=== PATIENT | male | born 1955 | race Caucasian/White ===

== ENCOUNTER 2018-06-22 08:41 | Emergency (ER) | payer OTHER ==
[2018-06-22] MEDS: SOD CHLORIDE 0.9% 1,000 ML IV (09:09)
[2018-06-22 09:15] LABS: ADD MAN DIFF? NO
[2018-06-22 09:18] LABS: ABNORMAL IP MESSAGE 1; BASOPHILS % 0.3 % (0.0-2.0); EOSINOPHILS % 0.3 % (0.0-7.0); HEMOGLOBIN 13.7 g/dl (14.0-18.0); LYMPHOCYTES # 0.5 10^3/ul (0.8-2.9); LYMPHOCYTES % 5.1 % (15.0-51.0); MEAN CORPUSCULAR HEMOGLOBIN 30.5 pg (29.0-33.0); MEAN CORPUSCULAR HGB CONC 31.9 g/dl (32.0-37.0); MEAN CORPUSCULAR VOLUME 95.8 fl (82.0-101.0); MEAN PLATELET VOLUME 8.9 fl (7.4-10.4); MONOCYTE # 0.6 10^3/ul (0.3-0.9); MONOCYTES % 6.4 % (0.0-11.0); NEUTROPHIL # 7.9 10^3/ul (1.6-7.5); NEUTROPHILS % 87.7 % (39.0-77.0); PLATELET COUNT 188 10^3/UL (140-415); POSITIVE DIFF @See below; RED BLOOD COUNT 4.49 10^6/ul (4.70-6.10); RED CELL DISTRIBUTION WIDTH 13.7 % (11.5-14.5)
[2018-06-22 09:40] LABS: ANION GAP 17 (5-13); BLOOD UREA NITROGEN 22 mg/dl (7-20); CALCIUM 8.9 mg/dl (8.4-10.2); CARBON DIOXIDE 21 mmol/L (21-31); CHLORIDE 102 mmol/L (97-110); CREATININE 0.78 mg/dl (0.61-1.24); Estimated GFR > 60 mL/min (>60); GLUCOSE 178 mg/dl (70-220); POTASSIUM 4.1 mmol/L (3.5-5.1); SODIUM 140 mmol/L (135-144)
[2018-06-22 09:49] LABS: PHENYTOIN (DILANTIN) < 3.0 ug/ml (10.0-20.0)
[2018-06-22] MEDS: FOSPHENYTOIN (PE) 1,000 MG in SOD CHLORIDE 0.9% 80 ML IVPB (10:34)
[2018-06-22] MEDS: LORAZEPAM 2 MG INJ IV (10:50)
== END 2018-06-22 13:25 | disposition home or self-care (01) ==
LOC: E/R 08:41
DX: R56.9 Unspecified convulsions (principal); R40.2142 Coma scale, eyes open, spontaneous, at arrival to emergency department; R40.2362 Coma scale, best motor response, obeys commands, at arrival to emergency department; R40.2252 Coma scale, best verbal response, oriented, at arrival to emergency department; F10.10 Alcohol abuse, uncomplicated; E11.9 Type 2 diabetes mellitus without complications
CPT/HCPCS: 36415; 80048; 80185; 82962; 85025; 96374; 96375; 99284-25

== ENCOUNTER 2018-09-07 15:21 | Emergency (ER) | payer OTHER ==
[2018-09-07 16:03] LABS: ADD MAN DIFF? NO
[2018-09-07 16:07] LABS: BASOPHILS % 0.3 % (0.0-2.0); EOSINOPHILS % 0.4 % (0.0-7.0); HEMATOCRIT 41.5 % (42.0-52.0); HEMOGLOBIN 13.4 g/dl (14.0-18.0); LYMPHOCYTES # 0.6 10^3/ul (0.8-2.9); LYMPHOCYTES % 8.2 % (15.0-51.0); MEAN CORPUSCULAR HEMOGLOBIN 30.9 pg (29.0-33.0); MEAN CORPUSCULAR HGB CONC 32.3 g/dl (32.0-37.0); MEAN CORPUSCULAR VOLUME 95.8 fl (82.0-101.0); MEAN PLATELET VOLUME 8.5 fl (7.4-10.4); MONOCYTE # 1.1 10^3/ul (0.3-0.9); MONOCYTES % 14.5 % (0.0-11.0); NEUTROPHIL # 5.7 10^3/ul (1.6-7.5); NEUTROPHILS % 75.9 % (39.0-77.0); PLATELET COUNT 147 10^3/UL (140-415); RED BLOOD COUNT 4.33 10^6/ul (4.70-6.10); RED CELL DISTRIBUTION WIDTH 13.4 % (11.5-14.5)
[2018-09-07 16:07] LABS: WHITE BLOOD COUNT 7.5 10^3/ul (4.8-10.8)
[2018-09-07] MEDS: LORAZEPAM 1 MG TAB PO (16:15)
[2018-09-07 16:22] LABS: INR 0.83; PARTIAL THROMBOPLASTIN TIME 24.5 Sec (23.0-35.0); PROTIME 11.5 Sec (11.9-14.9); PT RATIO 0.9
[2018-09-07 16:28] LABS: ANION GAP 6 (5-13); BLOOD UREA NITROGEN 20 mg/dl (7-20); CALCIUM 9.2 mg/dl (8.4-10.2); CARBON DIOXIDE 35 mmol/L (21-31); CHLORIDE 97 mmol/L (97-110); CREATININE 0.51 mg/dl (0.61-1.24); Estimated GFR > 60 mL/min (>60); GLUCOSE 153 mg/dl (70-220); POTASSIUM 3.9 mmol/L (3.5-5.1); SODIUM 138 mmol/L (135-144)
[2018-09-07 16:38] LABS: B-TYPE NATRIURETIC PEPTIDE 268 PG/ML (0-125); TROPONIN-I < 0.012 ng/ml (0.000-0.120)
[2018-09-07 16:49] LABS: PHENYTOIN (DILANTIN) < 3.0 ug/ml (10.0-20.0)
[2018-09-07 16:49] LABS: ETHANOL < 10.0 mg/dl (0-0)
[2018-09-07] MEDS: FOSPHENYTOIN (PE) 1,000 MG in SOD CHLORIDE 0.9% 80 ML IVPB (20:14)
== END 2018-09-07 21:42 | disposition home or self-care (01) ==
LOC: E/R 21:42
DX: F10.10 Alcohol abuse, uncomplicated (principal); I10 Essential (primary) hypertension; E11.9 Type 2 diabetes mellitus without complications; D64.9 Anemia, unspecified; Z79.82 Long term (current) use of aspirin
CPT/HCPCS: 36415; 71045; 80048; 80185; 80307; 83880; 84484; 85025; 85610; 85730; 93005; 96374; 99285-25

== ENCOUNTER 2018-10-22 17:24 | Emergency (ER) | payer OTHER ==
[2018-10-22] MEDS: DIPHTH/TET/ACEL PERTUSS (ADULT) 0.5 ML VIAL IM* (17:51)
[2018-10-22] MEDS: SOD CHLORIDE 0.9% 1,000 ML IV (17:51)
[2018-10-22] MEDS: LORAZEPAM 2 MG INJ IV (17:52)
[2018-10-22 18:00] LABS: ADD MAN DIFF? NO
[2018-10-22 18:03] LABS: BASOPHILS % 0.3 % (0.0-2.0); EOSINOPHILS # 0.1 10^3/ul (0.0-0.5); EOSINOPHILS % 1.7 % (0.0-7.0); HEMATOCRIT 40.6 % (42.0-52.0); HEMOGLOBIN 13.1 g/dl (14.0-18.0); LYMPHOCYTES % 14.6 % (15.0-51.0); MEAN CORPUSCULAR HEMOGLOBIN 31.3 pg (29.0-33.0); MEAN CORPUSCULAR HGB CONC 32.3 g/dl (32.0-37.0); MEAN CORPUSCULAR VOLUME 97.1 fl (82.0-101.0); MEAN PLATELET VOLUME 9.1 fl (7.4-10.4); MONOCYTE # 0.6 10^3/ul (0.3-0.9); MONOCYTES % 8.3 % (0.0-11.0); NEUTROPHIL # 5.2 10^3/ul (1.6-7.5); NEUTROPHILS % 74.7 % (39.0-77.0); PLATELET COUNT 117 10^3/UL (140-415); RED BLOOD COUNT 4.18 10^6/ul (4.70-6.10); RED CELL DISTRIBUTION WIDTH 15.5 % (11.5-14.5)
[2018-10-22 18:23] LABS: INR 0.77; PROTIME 10.9 Sec (11.9-14.9); PT RATIO 0.9
[2018-10-22 18:30] LABS: ALANINE AMINOTRANSFERASE 70 IU/L (13-69); ALBUMIN 4.1 g/dl (3.3-4.9); ALBUMIN/GLOBULIN RATIO 1.46; ALKALINE PHOSPHATASE 138 IU/L (42-121); ANION GAP 9 (5-13); ASPARTATE AMINO TRANSFERASE 57 IU/L (15-46); BILIRUBIN,INDIRECT 0.4 mg/dl (0-1.1); BILIRUBIN,TOTAL 0.4 mg/dl (0.2-1.3); BLOOD UREA NITROGEN 24 mg/dl (7-20); CALCIUM 9.2 mg/dl (8.4-10.2); CARBON DIOXIDE 38 mmol/L (21-31); CHLORIDE 97 mmol/L (97-110); CREATINE KINASE 62 IU/L (23-200); CREATININE 0.69 mg/dl (0.61-1.24); Estimated GFR > 60 mL/min (>60); GLUCOSE 110 mg/dl (70-220); POTASSIUM 4.5 mmol/L (3.5-5.1); SODIUM 144 mmol/L (135-144); TOTAL PROTEIN 6.9 g/dl (6.1-8.1)
[2018-10-22 18:38] LABS: CK INDEX 3.1; CK-MB 1.92 ng/ml (0.0-2.4)
[2018-10-22 18:42] LABS: TROPONIN-I 0.012 ng/ml (0.000-0.120)
[2018-10-22] MEDS: LIDOCAINE 4% CR TOP (20:10)
== END 2018-10-23 04:00 | disposition home or self-care (01) ==
LOC: E/R 10-23 04:00
DX: F10.920 Alcohol use, unspecified with intoxication, uncomplicated (principal); S01.81XA Laceration without foreign body of other part of head, initial encounter; I10 Essential (primary) hypertension; J44.9 Chronic obstructive pulmonary disease, unspecified; W18.30XA Fall on same level, unspecified, initial encounter; Y92.89 Other specified places as the place of occurrence of the external cause; Z23 Encounter for immunization; Z87.891 Personal history of nicotine dependence
CPT/HCPCS: 12013; 70450; 70486; 80053; 80307; 82550; 82553; 84484; 85025; 85610; 85730; 90471; 90715; 96374; 99285-25

== ENCOUNTER 2018-10-23 08:19 | Inpatient (IN) | payer OTHER ==
[2018-10-23] MEDS: ALBUTEROL 0.5% (NEB) 2.5 MG/0.5 ML AMP INH (09:06)
[2018-10-23] MEDS: IPRATROPIUM (NEB) 0.5 MG/2.5 ML AMP INH (09:06)
[2018-10-23] MEDS: METHYLPREDNISOLONE 125 MG INJ IV (09:10)
[2018-10-23] MEDS: LORAZEPAM 2 MG INJ IV ×5 (09:10→22:12)
[2018-10-23 09:24] LABS: ADD MAN DIFF? NO
[2018-10-23 09:31] LABS: ABNORMAL IP MESSAGE 1; BASOPHILS % 0.1 % (0.0-2.0); EOSINOPHILS % 0.1 % (0.0-7.0); HEMATOCRIT 36.8 % (42.0-52.0); LYMPHOCYTES # 0.4 10^3/ul (0.8-2.9); LYMPHOCYTES % 4.7 % (15.0-51.0); MEAN CORPUSCULAR HEMOGLOBIN 31.7 pg (29.0-33.0); MEAN CORPUSCULAR HGB CONC 32.6 g/dl (32.0-37.0); MEAN CORPUSCULAR VOLUME 97.1 fl (82.0-101.0); MEAN PLATELET VOLUME 9.8 fl (7.4-10.4); MONOCYTE # 0.9 10^3/ul (0.3-0.9); MONOCYTES % 11.1 % (0.0-11.0); NEUTROPHIL # 6.6 10^3/ul (1.6-7.5); NEUTROPHILS % 83.5 % (39.0-77.0); PLATELET COUNT 94 10^3/UL (140-415); POSITIVE DIFF @See below; RED BLOOD COUNT 3.79 10^6/ul (4.70-6.10); RED CELL DISTRIBUTION WIDTH 15.6 % (11.5-14.5)
[2018-10-23 09:31] LABS: WHITE BLOOD COUNT 7.9 10^3/ul (4.8-10.8)
[2018-10-23 09:45] LABS: INR 0.82; PARTIAL THROMBOPLASTIN TIME 22.4 Sec (23.0-35.0); PROTIME 11.4 Sec (11.9-14.9); PT RATIO 0.9
[2018-10-23 09:50] LABS: ANION GAP 14 (5-13); BLOOD UREA NITROGEN 23 mg/dl (7-20); CARBON DIOXIDE 32 mmol/L (21-31); CHLORIDE 95 mmol/L (97-110); CREATININE 0.47 mg/dl (0.61-1.24); Estimated GFR > 60 mL/min (>60); GLUCOSE 119 mg/dl (70-220); POTASSIUM 4.1 mmol/L (3.5-5.1); SODIUM 141 mmol/L (135-144)
[2018-10-23] MEDS: MULTIVITAMINS 10 ML, THIAMINE 100 MG, FOLIC ACID 1 MG, MAGNESIUM SULFATE 2 GM in SOD CH... IV (09:53)
[2018-10-23] MEDS: LEVETIRACETAM 750 MG TAB PO ×2 (09:53→20:18)
[2018-10-23 10:00] LABS: TROPONIN-I 0.017 ng/ml (0.000-0.120)
[2018-10-23] MEDS ORDERED: ONDANSETRON 4 MG INJ IV ×2 (13:00→13:30)
[2018-10-23] MEDS ORDERED: NACL 0.9% 3 ML SYG IV (13:00)
[2018-10-23] MEDS: LEVALBUTEROL (NEB) 0.63 MG/3 ML AMP HHN ×2 (13:10→20:33)
[2018-10-23] MEDS ORDERED: ACETAMINOPHEN 325 MG TAB PO (13:30)
[2018-10-23 14:17] LABS: FREE T4 (FREE THYROXINE) 0.95 ng/dl (0.78-2.44)
[2018-10-23 14:22] LABS: HEMOGLOBIN A1C 5.5 % (0-5.9)
[2018-10-23] MEDS: CHLORDIAZEPOXIDE 25 MG CAP PO ×2 (15:54→20:26)
[2018-10-23] MEDS: METOPROLOL 50 MG TAB PO ×2 (15:55→20:19)
[2018-10-23] MEDS: ARFORMOTEROL TARTRATE 15MCG/2 ML AMP NEB (20:00)
[2018-10-23] MEDS: ATORVASTATIN 40 MG TAB PO (20:18)
[2018-10-24] MEDS: LORAZEPAM 2 MG INJ IV ×5 (00:41→21:11)
[2018-10-24] MEDS: LEVALBUTEROL (NEB) 0.63 MG/3 ML AMP HHN ×3 (02:56→12:52)
[2018-10-24 06:24] LABS: ADD MAN DIFF? NO
[2018-10-24 06:41] LABS: ABNORMAL IP MESSAGE 1; BASOPHILS % 0.1 % (0.0-2.0); EOSINOPHILS % 0.1 % (0.0-7.0); HEMATOCRIT 35.3 % (42.0-52.0); HEMOGLOBIN 11.4 g/dl (14.0-18.0); LYMPHOCYTES # 0.4 10^3/ul (0.8-2.9); LYMPHOCYTES % 5.4 % (15.0-51.0); MEAN CORPUSCULAR HEMOGLOBIN 31.4 pg (29.0-33.0); MEAN CORPUSCULAR HGB CONC 32.3 g/dl (32.0-37.0); MEAN CORPUSCULAR VOLUME 97.2 fl (82.0-101.0); MEAN PLATELET VOLUME 10.2 fl (7.4-10.4); MONOCYTE # 0.9 10^3/ul (0.3-0.9); MONOCYTES % 12.6 % (0.0-11.0); NEUTROPHIL # 5.5 10^3/ul (1.6-7.5); NEUTROPHILS % 81.2 % (39.0-77.0); PLATELET COUNT 78 10^3/UL (140-415); POSITIVE DIFF @See below; RED BLOOD COUNT 3.63 10^6/ul (4.70-6.10); RED CELL DISTRIBUTION WIDTH 15.7 % (11.5-14.5)
[2018-10-24 06:41] LABS: WHITE BLOOD COUNT 6.8 10^3/ul (4.8-10.8)
[2018-10-24 06:45] LABS: HEMOGLOBIN A1C 5.4 % (0-5.9)
[2018-10-24 06:48] LABS: PHOSPHORUS 2.3 mg/dl (2.5-4.9)
[2018-10-24 06:48] LABS: CHOLESTEROL 180 mg/dl (100-200); MAGNESIUM 2.2 mg/dl (1.7-2.5); TRIGLYCERIDES 45 mg/dl (0-149)
[2018-10-24 06:50] LABS: ALANINE AMINOTRANSFERASE 44 IU/L (13-69); ALBUMIN 3.7 g/dl (3.3-4.9); ALBUMIN/GLOBULIN RATIO 1.37; ALKALINE PHOSPHATASE 83 IU/L (42-121); ANION GAP 6 (5-13); ASPARTATE AMINO TRANSFERASE 41 IU/L (15-46); BILIRUBIN,INDIRECT 0.7 mg/dl (0-1.1); BILIRUBIN,TOTAL 0.7 mg/dl (0.2-1.3); BLOOD UREA NITROGEN 13 mg/dl (7-20); CALCIUM 8.7 mg/dl (8.4-10.2); CARBON DIOXIDE 35 mmol/L (21-31); CHLORIDE 100 mmol/L (97-110); CREATININE 0.48 mg/dl (0.61-1.24); Estimated GFR > 60 mL/min (>60); GLUCOSE 99 mg/dl (70-220); POTASSIUM 3.7 mmol/L (3.5-5.1); SODIUM 141 mmol/L (135-144); TOTAL PROTEIN 6.4 g/dl (6.1-8.1)
[2018-10-24 07:00] LABS: CHOL/HDL RATIO 1.2 RATIO; HDL CHOLESTEROL 142 mg/dl (30-78); LDL CHOLESTEROL,CALCULATED 29 mg/dl
[2018-10-24] MEDS: ARFORMOTEROL TARTRATE 15MCG/2 ML AMP NEB (08:03)
[2018-10-24] MEDS: CHLORDIAZEPOXIDE 25 MG CAP PO ×3 (09:06→20:09)
[2018-10-24] MEDS: NICOTINE (14 MG/24 HR) PATCH TRANSDERM (09:06)
[2018-10-24] MEDS: MULTIVITAMINS THERAPEUTIC TAB PO (09:07)
[2018-10-24] MEDS: LEVETIRACETAM 750 MG TAB PO ×2 (09:07→20:09)
[2018-10-24] MEDS: METOPROLOL 50 MG TAB PO ×2 (09:07→20:09)
[2018-10-24] MEDS ORDERED: LORAZEPAM 2 MG INJ IV (13:00)
[2018-10-24] MEDS: BUDESONIDE (NEB) 0.5MG/2ML AMP HHN ×2 (13:30→20:14)
[2018-10-24] MEDS: ALBUTEROL/IPRATROPIUM (NEB) 3 ML AMP HHN ×3 (13:37→20:13)
[2018-10-24] MEDS: ATORVASTATIN 40 MG TAB PO (20:09)
[2018-10-25] MEDS: LORAZEPAM 2 MG INJ IV ×3 (03:59→20:09)
[2018-10-25] MEDS: ALBUTEROL/IPRATROPIUM (NEB) 3 ML AMP HHN ×4 (04:11→20:29)
[2018-10-25 06:42] LABS: ADD MAN DIFF? NO
[2018-10-25 06:58] LABS: ABNORMAL IP MESSAGE 1; BASOPHILS % 0.2 % (0.0-2.0); EOSINOPHILS # 0.1 10^3/ul (0.0-0.5); HEMATOCRIT 38.3 % (42.0-52.0); HEMOGLOBIN 12.5 g/dl (14.0-18.0); LYMPHOCYTES # 0.9 10^3/ul (0.8-2.9); MEAN CORPUSCULAR HEMOGLOBIN 31.8 pg (29.0-33.0); MEAN CORPUSCULAR HGB CONC 32.6 g/dl (32.0-37.0); MEAN CORPUSCULAR VOLUME 97.5 fl (82.0-101.0); MONOCYTE # 0.5 10^3/ul (0.3-0.9); MONOCYTES % 8.5 % (0.0-11.0); NEUTROPHIL # 4.3 10^3/ul (1.6-7.5); NEUTROPHILS % 73.6 % (39.0-77.0); PLATELET COUNT 78 10^3/UL (140-415); POSITIVE DIFF @See below; RED BLOOD COUNT 3.93 10^6/ul (4.70-6.10); RED CELL DISTRIBUTION WIDTH 15.9 % (11.5-14.5)
[2018-10-25 06:58] LABS: WHITE BLOOD COUNT 5.9 10^3/ul (4.8-10.8)
[2018-10-25 07:20] LABS: ANION GAP 5 (5-13); BLOOD UREA NITROGEN 14 mg/dl (7-20); CALCIUM 8.8 mg/dl (8.4-10.2); CARBON DIOXIDE 35 mmol/L (21-31); CHLORIDE 101 mmol/L (97-110); CREATININE 0.52 mg/dl (0.61-1.24); Estimated GFR > 60 mL/min (>60); GLUCOSE 98 mg/dl (70-220); PHOSPHORUS 1.4 mg/dl (2.5-4.9); POTASSIUM 3.2 mmol/L (3.5-5.1); SODIUM 141 mmol/L (135-144)
[2018-10-25] MEDS: BUDESONIDE (NEB) 0.5MG/2ML AMP HHN ×2 (08:32→20:29)
[2018-10-25] MEDS: CHLORDIAZEPOXIDE 25 MG CAP PO (09:10)
[2018-10-25] MEDS: MULTIVITAMINS THERAPEUTIC TAB PO (09:11)
[2018-10-25] MEDS: LEVETIRACETAM 750 MG TAB PO ×2 (09:11→20:08)
[2018-10-25] MEDS: METOPROLOL 50 MG TAB PO ×2 (09:12→20:08)
[2018-10-25] MEDS: NICOTINE (14 MG/24 HR) PATCH TRANSDERM (09:12)
[2018-10-25] MEDS: CHLORDIAZEPOXIDE 5 MG CAP PO ×2 (12:37→20:08)
[2018-10-25] MEDS: POTASSIUM CHLORIDE 20 MEQ POWDER FOR ORAL SOLN PO (12:37)
[2018-10-25] MEDS: NEUTRA-PHOS 250 MG PACKET PO (13:35)
[2018-10-25 14:37] LABS: AMMONIA 13 umol/l (9-30); CREATINE KINASE 31 IU/L (23-200)
[2018-10-25] MEDS: ATORVASTATIN 40 MG TAB PO (20:08)
[2018-10-26] MEDS: LORAZEPAM 2 MG INJ IV ×3 (02:18→22:16)
[2018-10-26 06:26] LABS: ADD MAN DIFF? NO
[2018-10-26 06:36] LABS: ABNORMAL IP MESSAGE 1; BASOPHILS % 0.3 % (0.0-2.0); EOSINOPHILS # 0.2 10^3/ul (0.0-0.5); EOSINOPHILS % 2.1 % (0.0-7.0); HEMATOCRIT 35.6 % (42.0-52.0); HEMOGLOBIN 11.5 g/dl (14.0-18.0); LYMPHOCYTES # 0.9 10^3/ul (0.8-2.9); LYMPHOCYTES % 11.6 % (15.0-51.0); MEAN CORPUSCULAR HEMOGLOBIN 31.7 pg (29.0-33.0); MEAN CORPUSCULAR HGB CONC 32.3 g/dl (32.0-37.0); MEAN CORPUSCULAR VOLUME 98.1 fl (82.0-101.0); MONOCYTE # 0.6 10^3/ul (0.3-0.9); MONOCYTES % 7.6 % (0.0-11.0); NEUTROPHIL # 6.2 10^3/ul (1.6-7.5); NEUTROPHILS % 77.8 % (39.0-77.0); PLATELET COUNT 74 10^3/UL (140-415); POSITIVE DIFF @See below; RED BLOOD COUNT 3.63 10^6/ul (4.70-6.10); RED CELL DISTRIBUTION WIDTH 15.9 % (11.5-14.5)
[2018-10-26 07:11] LABS: ANION GAP 4 (5-13); BLOOD UREA NITROGEN 27 mg/dl (7-20); CALCIUM 8.8 mg/dl (8.4-10.2); CARBON DIOXIDE 31 mmol/L (21-31); CHLORIDE 104 mmol/L (97-110); CREATININE 0.62 mg/dl (0.61-1.24); Estimated GFR > 60 mL/min (>60); GLUCOSE 114 mg/dl (70-220); MAGNESIUM 1.7 mg/dl (1.7-2.5); PHOSPHORUS 3.8 mg/dl (2.5-4.9); POTASSIUM 3.7 mmol/L (3.5-5.1); SODIUM 139 mmol/L (135-144)
[2018-10-26] MEDS: BUDESONIDE (NEB) 0.5MG/2ML AMP HHN ×2 (08:45→20:10)
[2018-10-26] MEDS: ALBUTEROL/IPRATROPIUM (NEB) 3 ML AMP HHN ×3 (08:45→20:10)
[2018-10-26] MEDS: CHLORDIAZEPOXIDE 5 MG CAP PO ×3 (09:39→21:24)
[2018-10-26] MEDS: MULTIVITAMINS THERAPEUTIC TAB PO (09:39)
[2018-10-26] MEDS: LEVETIRACETAM 750 MG TAB PO ×2 (09:39→21:24)
[2018-10-26] MEDS: NICOTINE (14 MG/24 HR) PATCH TRANSDERM (09:40)
[2018-10-26] MEDS: METOPROLOL 50 MG TAB PO ×2 (09:45→21:24)
[2018-10-26 12:29] LABS: ADD UMIC YES; UR ASCORBIC ACID 20 mg/dL (NEGATIVE); UR BILIRUBIN (Dip) NEGATIVE (NEGATIVE); UR BLOOD (Dip) NEGATIVE (NEGATIVE); UR CLARITY CLOUDY (CLEAR); UR COLOR YELLOW (YELLOW); UR GLUCOSE (Dip) NEGATIVE (NEGATIVE); UR KETONES (Dip) NEGATIVE (NEGATIVE); UR LEUKOCYTE ESTERASE (Dip) NEGATIVE Leu/ul (NEGATIVE); UR MUCUS FEW /HPF (NONE SEEN); UR NITRITE (Dip) NEGATIVE (NEGATIVE); UR RBC 1 /HPF (0-5); UR SPECIFIC GRAVITY (Dip) 1.021 (1.003-1.030); UR TOTAL PROTEIN (Dip) 1+ mg/dl (NEGATIVE); UR UROBILINOGEN (Dip) NEGATIVE (NEGATIVE); UR WBC 1 /HPF (0-5)
[2018-10-26 12:56] LABS: AMPHETAMINE/METHAMPHETAMINE Negative (NEGATIVE); BARBITURATES Negative (NEGATIVE); CANNABINOIDS Negative (NEGATIVE); COCAINE Negative (NEGATIVE); OPIATES Negative (NEGATIVE)
[2018-10-26 13:11] LABS: BENZODIAZEPINES Positive (NEGATIVE)
[2018-10-26] MEDS: HYDROCODONE/APAP (5/325) TAB PO (18:15)
[2018-10-26] MEDS: ATORVASTATIN 40 MG TAB PO (21:24)
[2018-10-26] MEDS: ZOLPIDEM 5 MG TAB PO (23:43)
[2018-10-27] MEDS: HYDROCODONE/APAP (5/325) TAB PO ×3 (00:56→19:51)
[2018-10-27 07:30] LABS: ADD MAN DIFF? NO
[2018-10-27 07:38] LABS: WHITE BLOOD COUNT 6.5 10^3/ul (4.8-10.8)
[2018-10-27 07:38] LABS: ABNORMAL IP MESSAGE 1; BASOPHILS % 0.2 % (0.0-2.0); EOSINOPHILS # 0.2 10^3/ul (0.0-0.5); EOSINOPHILS % 2.9 % (0.0-7.0); HEMATOCRIT 34.1 % (42.0-52.0); LYMPHOCYTES # 1.3 10^3/ul (0.8-2.9); MEAN CORPUSCULAR HEMOGLOBIN 31.6 pg (29.0-33.0); MEAN CORPUSCULAR HGB CONC 32.3 g/dl (32.0-37.0); MEAN PLATELET VOLUME 10.3 fl (7.4-10.4); MONOCYTE # 0.5 10^3/ul (0.3-0.9); MONOCYTES % 8.2 % (0.0-11.0); NEUTROPHIL # 4.4 10^3/ul (1.6-7.5); NEUTROPHILS % 68.2 % (39.0-77.0); PLATELET COUNT 77 10^3/UL (140-415); POSITIVE DIFF @See below; RED BLOOD COUNT 3.48 10^6/ul (4.70-6.10)
[2018-10-27 07:55] LABS: ANION GAP 2 (5-13); BLOOD UREA NITROGEN 20 mg/dl (7-20); CARBON DIOXIDE 34 mmol/L (21-31); CHLORIDE 102 mmol/L (97-110); CREATININE 0.51 mg/dl (0.61-1.24); Estimated GFR > 60 mL/min (>60); GLUCOSE 91 mg/dl (70-220); MAGNESIUM 1.5 mg/dl (1.7-2.5); PHOSPHORUS 4.9 mg/dl (2.5-4.9); POTASSIUM 3.6 mmol/L (3.5-5.1); SODIUM 138 mmol/L (135-144)
[2018-10-27] MEDS: ALBUTEROL/IPRATROPIUM (NEB) 3 ML AMP HHN ×3 (08:07→20:20)
[2018-10-27] MEDS: BUDESONIDE (NEB) 0.5MG/2ML AMP HHN ×2 (08:07→20:21)
[2018-10-27] MEDS: LEVETIRACETAM 750 MG TAB PO ×2 (09:06→20:13)
[2018-10-27] MEDS: MULTIVITAMINS THERAPEUTIC TAB PO (09:06)
[2018-10-27] MEDS: CHLORDIAZEPOXIDE 5 MG CAP PO ×2 (09:06→12:35)
[2018-10-27] MEDS: NICOTINE (14 MG/24 HR) PATCH TRANSDERM (09:07)
[2018-10-27] MEDS: METOPROLOL 50 MG TAB PO ×2 (09:08→20:14)
[2018-10-27] MEDS: LORAZEPAM 2 MG INJ IV (10:32)
[2018-10-27] MEDS ORDERED: SENNA/DOCUSATE NA (8.6MG/50MG) TAB PO (15:00)
[2018-10-27] MEDS: DOCUSATE SODIUM 100 MG CAP PO ×2 (15:26→20:13)
[2018-10-27] MEDS: LORAZEPAM 1 MG TAB PO (17:00)
[2018-10-27] MEDS: ATORVASTATIN 40 MG TAB PO (20:14)
[2018-10-28] MEDS: LORAZEPAM 1 MG TAB PO ×3 (00:07→14:00)
[2018-10-28] MEDS: ZOLPIDEM 5 MG TAB PO ×2 (01:59→21:56)
[2018-10-28] MEDS: HYDROCODONE/APAP (5/325) TAB PO ×4 (02:51→20:29)
[2018-10-28 06:15] LABS: ADD MAN DIFF? NO
[2018-10-28 06:18] LABS: ABNORMAL IP MESSAGE 1; BASOPHILS % 0.3 % (0.0-2.0); EOSINOPHILS # 0.2 10^3/ul (0.0-0.5); EOSINOPHILS % 2.8 % (0.0-7.0); HEMATOCRIT 38.2 % (42.0-52.0); HEMOGLOBIN 12.1 g/dl (14.0-18.0); LYMPHOCYTES # 1.1 10^3/ul (0.8-2.9); LYMPHOCYTES % 17.6 % (15.0-51.0); MEAN CORPUSCULAR HEMOGLOBIN 31.7 pg (29.0-33.0); MEAN CORPUSCULAR HGB CONC 31.7 g/dl (32.0-37.0); MEAN PLATELET VOLUME 11.1 fl (7.4-10.4); MONOCYTE # 0.6 10^3/ul (0.3-0.9); MONOCYTES % 8.8 % (0.0-11.0); NEUTROPHIL # 4.4 10^3/ul (1.6-7.5); NEUTROPHILS % 69.7 % (39.0-77.0); PLATELET COUNT 75 10^3/UL (140-415); POSITIVE DIFF @See below; RED BLOOD COUNT 3.82 10^6/ul (4.70-6.10); RED CELL DISTRIBUTION WIDTH 15.8 % (11.5-14.5)
[2018-10-28 06:18] LABS: WHITE BLOOD COUNT 6.4 10^3/ul (4.8-10.8)
[2018-10-28 06:39] LABS: ANION GAP 5 (5-13); BLOOD UREA NITROGEN 26 mg/dl (7-20); CALCIUM 8.8 mg/dl (8.4-10.2); CARBON DIOXIDE 31 mmol/L (21-31); CHLORIDE 101 mmol/L (97-110); Estimated GFR > 60 mL/min (>60); GLUCOSE 122 mg/dl (70-220); MAGNESIUM 1.6 mg/dl (1.7-2.5); PHOSPHORUS 3.9 mg/dl (2.5-4.9); POTASSIUM 4.9 mmol/L (3.5-5.1); SODIUM 137 mmol/L (135-144)
[2018-10-28] MEDS: NICOTINE (14 MG/24 HR) PATCH TRANSDERM (08:06)
[2018-10-28] MEDS: MULTIVITAMINS THERAPEUTIC TAB PO (08:06)
[2018-10-28] MEDS: LEVETIRACETAM 750 MG TAB PO ×2 (08:06→20:29)
[2018-10-28] MEDS: DOCUSATE SODIUM 100 MG CAP PO ×2 (08:07→20:29)
[2018-10-28] MEDS: METOPROLOL 50 MG TAB PO ×2 (08:07→20:28)
[2018-10-28] MEDS: ALBUTEROL/IPRATROPIUM (NEB) 3 ML AMP HHN ×3 (08:41→19:57)
[2018-10-28] MEDS: BUDESONIDE (NEB) 0.5MG/2ML AMP HHN ×2 (08:42→19:57)
[2018-10-28] MEDS: MAGNESIUM SULFATE 2 GM/50 ML 50 ML IVPB (15:05)
[2018-10-28] MEDS: ATORVASTATIN 40 MG TAB PO (20:29)
[2018-10-29] MEDS: HYDROCODONE/APAP (5/325) TAB PO ×3 (02:38→21:13)
[2018-10-29] MEDS: LORAZEPAM 1 MG TAB PO ×2 (03:16→09:53)
[2018-10-29 06:36] LABS: ANION GAP 4 (5-13); BLOOD UREA NITROGEN 24 mg/dl (7-20); CALCIUM 8.9 mg/dl (8.4-10.2); CARBON DIOXIDE 35 mmol/L (21-31); CHLORIDE 99 mmol/L (97-110); CREATININE 0.53 mg/dl (0.61-1.24); Estimated GFR > 60 mL/min (>60); GLUCOSE 87 mg/dl (70-220); MAGNESIUM 1.9 mg/dl (1.7-2.5); POTASSIUM 3.9 mmol/L (3.5-5.1); SODIUM 138 mmol/L (135-144)
[2018-10-29] MEDS: ALBUTEROL/IPRATROPIUM (NEB) 3 ML AMP HHN ×3 (07:55→19:16)
[2018-10-29] MEDS: BUDESONIDE (NEB) 0.5MG/2ML AMP HHN ×2 (08:01→19:16)
[2018-10-29] MEDS: NICOTINE (14 MG/24 HR) PATCH TRANSDERM (08:05)
[2018-10-29] MEDS: LEVETIRACETAM 750 MG TAB PO ×2 (08:06→21:12)
[2018-10-29] MEDS: DOCUSATE SODIUM 100 MG CAP PO ×2 (08:06→21:00)
[2018-10-29] MEDS: MULTIVITAMINS THERAPEUTIC TAB PO (08:07)
[2018-10-29] MEDS: METOPROLOL 50 MG TAB PO ×2 (08:07→21:00)
[2018-10-29] MEDS: VENLAFAXINE 37.5 MG TAB PO (08:07)
[2018-10-29 15:23] LABS: AADO2 Arterial 36.4 mmHg (7.0-24.0); Allen Test ACCEPTAB; Arterial Base Excess 8.2 mmol/L (-3.0-3); Arterial Blood Gas Oxygen Sat 97.4 mmHG (95.0-98.0); Arterial COHb 0 % (0.0-3.0); Arterial Fraction of Oxyhgb 97.1 % (93.0-99.0); Arterial HCO3 35.5 mmol/L (22.0-26.0); Arterial MetHb 0.3 % (0.0-1.5); Arterial pCO2 63.8 mmhg (35-45); MODE NASAL CANNULA; Site Right Radial
[2018-10-29] MEDS: LORAZEPAM 0.5 MG TAB PO (18:45)
[2018-10-29] MEDS: ATORVASTATIN 40 MG TAB PO (21:12)
[2018-10-29] MEDS: ZOLPIDEM 5 MG TAB PO (22:19)
[2018-10-30] MEDS: LORAZEPAM 0.5 MG TAB PO ×3 (01:28→19:23)
[2018-10-30] MEDS: HYDROCODONE/APAP (5/325) TAB PO ×3 (03:06→20:20)
[2018-10-30 06:07] LABS: ADD MAN DIFF? NO
[2018-10-30 06:09] LABS: WHITE BLOOD COUNT 5.7 10^3/ul (4.8-10.8)
[2018-10-30 06:09] LABS: BASOPHILS % 0.4 % (0.0-2.0); EOSINOPHILS # 0.2 10^3/ul (0.0-0.5); EOSINOPHILS % 3.2 % (0.0-7.0); HEMOGLOBIN 10.1 g/dl (14.0-18.0); LYMPHOCYTES % 16.7 % (15.0-51.0); MEAN CORPUSCULAR HEMOGLOBIN 31.7 pg (29.0-33.0); MEAN CORPUSCULAR HGB CONC 31.6 g/dl (32.0-37.0); MEAN CORPUSCULAR VOLUME 100.3 fl (82.0-101.0); MEAN PLATELET VOLUME 9.4 fl (7.4-10.4); MONOCYTE # 0.9 10^3/ul (0.3-0.9); MONOCYTES % 15.5 % (0.0-11.0); NEUTROPHIL # 3.6 10^3/ul (1.6-7.5); NEUTROPHILS % 63.5 % (39.0-77.0); PLATELET COUNT 131 10^3/UL (140-415); RED BLOOD COUNT 3.19 10^6/ul (4.70-6.10); RED CELL DISTRIBUTION WIDTH 15.4 % (11.5-14.5)
[2018-10-30 06:28] LABS: ANION GAP 2 (5-13); BLOOD UREA NITROGEN 23 mg/dl (7-20); CALCIUM 8.6 mg/dl (8.4-10.2); CARBON DIOXIDE 36 mmol/L (21-31); CHLORIDE 100 mmol/L (97-110); CREATININE 0.52 mg/dl (0.61-1.24); Estimated GFR > 60 mL/min (>60); GLUCOSE 126 mg/dl (70-220); MAGNESIUM 1.9 mg/dl (1.7-2.5); PHOSPHORUS 3.6 mg/dl (2.5-4.9); POTASSIUM 3.9 mmol/L (3.5-5.1); SODIUM 138 mmol/L (135-144)
[2018-10-30] MEDS: ALBUTEROL/IPRATROPIUM (NEB) 3 ML AMP HHN ×3 (08:18→20:29)
[2018-10-30] MEDS: BUDESONIDE (NEB) 0.5MG/2ML AMP HHN ×2 (08:28→20:36)
[2018-10-30] MEDS: DOCUSATE SODIUM 100 MG CAP PO ×2 (09:19→20:17)
[2018-10-30] MEDS: METOPROLOL 50 MG TAB PO ×2 (09:20→20:18)
[2018-10-30] MEDS: MULTIVITAMINS THERAPEUTIC TAB PO (09:20)
[2018-10-30] MEDS: NICOTINE (14 MG/24 HR) PATCH TRANSDERM (09:23)
[2018-10-30] MEDS: VENLAFAXINE 37.5 MG TAB PO (13:07)
[2018-10-30] MEDS: LEVETIRACETAM 750 MG TAB PO ×2 (13:07→20:17)
[2018-10-30 13:21] LABS: HEMATOCRIT 35.8 % (42.0-52.0); HEMOGLOBIN 11.4 g/dl (14.0-18.0)
[2018-10-30] MEDS: ATORVASTATIN 40 MG TAB PO (20:17)
[2018-10-31] MEDS: ZOLPIDEM 5 MG TAB PO ×2 (01:15→22:38)
[2018-10-31] MEDS: HYDROCODONE/APAP (5/325) TAB PO (03:32)
[2018-10-31 07:04] LABS: ADD MAN DIFF? NO
[2018-10-31 07:07] LABS: WHITE BLOOD COUNT 4.8 10^3/ul (4.8-10.8)
[2018-10-31 07:07] LABS: BASOPHILS % 0.4 % (0.0-2.0); EOSINOPHILS # 0.2 10^3/ul (0.0-0.5); EOSINOPHILS % 3.1 % (0.0-7.0); HEMATOCRIT 35.4 % (42.0-52.0); HEMOGLOBIN 11.2 g/dl (14.0-18.0); LYMPHOCYTES # 0.9 10^3/ul (0.8-2.9); LYMPHOCYTES % 19.5 % (15.0-51.0); MEAN CORPUSCULAR HEMOGLOBIN 31.6 pg (29.0-33.0); MEAN CORPUSCULAR HGB CONC 31.6 g/dl (32.0-37.0); MEAN PLATELET VOLUME 9.3 fl (7.4-10.4); MONOCYTE # 0.9 10^3/ul (0.3-0.9); MONOCYTES % 18.9 % (0.0-11.0); NEUTROPHIL # 2.7 10^3/ul (1.6-7.5); NEUTROPHILS % 57.3 % (39.0-77.0); PLATELET COUNT 174 10^3/UL (140-415); RED BLOOD COUNT 3.54 10^6/ul (4.70-6.10); RED CELL DISTRIBUTION WIDTH 15.2 % (11.5-14.5)
[2018-10-31 07:33] LABS: ANION GAP 3 (5-13); BLOOD UREA NITROGEN 19 mg/dl (7-20); CALCIUM 8.6 mg/dl (8.4-10.2); CARBON DIOXIDE 37 mmol/L (21-31); CHLORIDE 99 mmol/L (97-110); CREATININE 0.56 mg/dl (0.61-1.24); Estimated GFR > 60 mL/min (>60); GLUCOSE 77 mg/dl (70-220); PHOSPHORUS 3.7 mg/dl (2.5-4.9); POTASSIUM 4.3 mmol/L (3.5-5.1); SODIUM 139 mmol/L (135-144)
[2018-10-31] MEDS: ALBUTEROL/IPRATROPIUM (NEB) 3 ML AMP HHN ×3 (08:40→20:21)
[2018-10-31] MEDS: BUDESONIDE (NEB) 0.5MG/2ML AMP HHN ×2 (08:50→20:21)
[2018-10-31] MEDS: VENLAFAXINE 37.5 MG TAB PO (08:57)
[2018-10-31] MEDS: LEVETIRACETAM 750 MG TAB PO ×2 (08:57→20:45)
[2018-10-31] MEDS: NICOTINE (14 MG/24 HR) PATCH TRANSDERM (08:57)
[2018-10-31] MEDS: MULTIVITAMINS THERAPEUTIC TAB PO (08:58)
[2018-10-31] MEDS: DOCUSATE SODIUM 100 MG CAP PO ×2 (08:58→20:46)
[2018-10-31] MEDS: METOPROLOL 50 MG TAB PO ×2 (08:58→20:47)
[2018-10-31] MEDS: LORAZEPAM 0.5 MG TAB PO ×2 (09:56→20:46)
[2018-10-31] MEDS: ATORVASTATIN 40 MG TAB PO (20:46)
[2018-11-01] MEDS: HYDROCODONE/APAP (5/325) TAB PO ×2 (03:13→12:40)
[2018-11-01] MEDS: LEVETIRACETAM 750 MG TAB PO ×2 (08:29→20:16)
[2018-11-01] MEDS: VENLAFAXINE 37.5 MG TAB PO (08:29)
[2018-11-01] MEDS: MULTIVITAMINS THERAPEUTIC TAB PO (08:29)
[2018-11-01] MEDS: DOCUSATE SODIUM 100 MG CAP PO ×2 (08:30→20:16)
[2018-11-01] MEDS: METOPROLOL 50 MG TAB PO ×2 (08:30→20:18)
[2018-11-01] MEDS: NICOTINE (14 MG/24 HR) PATCH TRANSDERM (08:31)
[2018-11-01] MEDS: LORAZEPAM 0.5 MG TAB PO ×2 (08:34→20:16)
[2018-11-01] MEDS: ALBUTEROL/IPRATROPIUM (NEB) 3 ML AMP HHN ×3 (08:55→20:45)
[2018-11-01] MEDS: BUDESONIDE (NEB) 0.5MG/2ML AMP HHN ×2 (08:58→20:45)
[2018-11-01] MEDS: ATORVASTATIN 40 MG TAB PO (20:16)
[2018-11-01] MEDS: ZOLPIDEM 5 MG TAB PO (21:19)
[2018-11-02] MEDS: LORAZEPAM 0.5 MG TAB PO ×3 (02:11→20:10)
[2018-11-02] MEDS: HYDROCODONE/APAP (5/325) TAB PO (04:17)
[2018-11-02] MEDS: BUDESONIDE (NEB) 0.5MG/2ML AMP HHN ×2 (07:46→19:48)
[2018-11-02] MEDS: ALBUTEROL/IPRATROPIUM (NEB) 3 ML AMP HHN ×3 (07:46→19:48)
[2018-11-02] MEDS: METOPROLOL 50 MG TAB PO ×2 (08:22→20:11)
[2018-11-02] MEDS: DOCUSATE SODIUM 100 MG CAP PO ×2 (08:22→20:10)
[2018-11-02] MEDS: LEVETIRACETAM 750 MG TAB PO ×2 (08:22→21:23)
[2018-11-02] MEDS: MULTIVITAMINS THERAPEUTIC TAB PO (08:22)
[2018-11-02] MEDS: NICOTINE (14 MG/24 HR) PATCH TRANSDERM (08:23)
[2018-11-02] MEDS: VENLAFAXINE 37.5 MG TAB PO (08:27)
[2018-11-02] MEDS: ATORVASTATIN 40 MG TAB PO (20:10)
[2018-11-02] MEDS: ZOLPIDEM 5 MG TAB PO (21:23)
[2018-11-03] MEDS: HYDROCODONE/APAP (5/325) TAB PO ×2 (00:46→21:31)
[2018-11-03] MEDS: ALBUTEROL/IPRATROPIUM (NEB) 3 ML AMP HHN ×3 (08:22→20:58)
[2018-11-03] MEDS: BUDESONIDE (NEB) 0.5MG/2ML AMP HHN ×2 (08:23→20:59)
[2018-11-03] MEDS: DOCUSATE SODIUM 100 MG CAP PO ×2 (08:37→20:09)
[2018-11-03] MEDS: MULTIVITAMINS THERAPEUTIC TAB PO (08:37)
[2018-11-03] MEDS: LEVETIRACETAM 750 MG TAB PO ×2 (08:37→20:08)
[2018-11-03] MEDS: VENLAFAXINE 37.5 MG TAB PO (08:37)
[2018-11-03] MEDS: METOPROLOL 50 MG TAB PO ×2 (08:38→20:09)
[2018-11-03] MEDS: NICOTINE (14 MG/24 HR) PATCH TRANSDERM (08:38)
[2018-11-03] MEDS: LORAZEPAM 0.5 MG TAB PO ×2 (08:41→20:08)
[2018-11-03] MEDS: ATORVASTATIN 40 MG TAB PO (20:07)
[2018-11-04] MEDS: ZOLPIDEM 5 MG TAB PO ×2 (01:45→20:48)
[2018-11-04] MEDS: METOPROLOL 50 MG TAB PO ×3 (08:24→21:20)
[2018-11-04] MEDS: VENLAFAXINE 37.5 MG TAB PO (08:25)
[2018-11-04] MEDS: LEVETIRACETAM 750 MG TAB PO ×2 (08:25→20:44)
[2018-11-04] MEDS: DOCUSATE SODIUM 100 MG CAP PO ×2 (08:25→20:47)
[2018-11-04] MEDS: LORAZEPAM 0.5 MG TAB PO (08:25)
[2018-11-04] MEDS: MULTIVITAMINS THERAPEUTIC TAB PO (08:25)
[2018-11-04] MEDS: NICOTINE (14 MG/24 HR) PATCH TRANSDERM (08:26)
[2018-11-04] MEDS: ALBUTEROL/IPRATROPIUM (NEB) 3 ML AMP HHN ×3 (08:56→19:21)
[2018-11-04] MEDS: BUDESONIDE (NEB) 0.5MG/2ML AMP HHN ×2 (08:56→19:21)
[2018-11-04] MEDS: ATORVASTATIN 40 MG TAB PO (20:47)
[2018-11-04] MEDS: HYDROCODONE/APAP (5/325) TAB PO (21:39)
[2018-11-05] MEDS: LORAZEPAM 0.5 MG TAB PO ×3 (03:03→20:02)
[2018-11-05] MEDS: NICOTINE (14 MG/24 HR) PATCH TRANSDERM (08:08)
[2018-11-05] MEDS: HYDROCODONE/APAP (5/325) TAB PO ×2 (08:09→20:03)
[2018-11-05] MEDS: DOCUSATE SODIUM 100 MG CAP PO ×2 (08:09→20:01)
[2018-11-05] MEDS: VENLAFAXINE 37.5 MG TAB PO (08:09)
[2018-11-05] MEDS: MULTIVITAMINS THERAPEUTIC TAB PO (08:09)
[2018-11-05] MEDS: METOPROLOL 50 MG TAB PO ×2 (08:09→20:02)
[2018-11-05] MEDS: LEVETIRACETAM 750 MG TAB PO ×2 (08:09→20:00)
[2018-11-05] MEDS: ALBUTEROL/IPRATROPIUM (NEB) 3 ML AMP HHN ×3 (08:16→21:46)
[2018-11-05] MEDS: BUDESONIDE (NEB) 0.5MG/2ML AMP HHN ×2 (08:16→21:50)
[2018-11-05] MEDS: ATORVASTATIN 40 MG TAB PO (20:01)
[2018-11-05] MEDS: ZOLPIDEM 5 MG TAB PO (20:08)
[2018-11-06] MEDS: ALBUTEROL/IPRATROPIUM (NEB) 3 ML AMP HHN ×4 (08:00→19:33)
[2018-11-06] MEDS: VENLAFAXINE 37.5 MG TAB PO (08:32)
[2018-11-06] MEDS: NICOTINE (14 MG/24 HR) PATCH TRANSDERM (08:32)
[2018-11-06] MEDS: DOCUSATE SODIUM 100 MG CAP PO ×2 (08:32→20:09)
[2018-11-06] MEDS: LEVETIRACETAM 750 MG TAB PO ×2 (08:32→20:07)
[2018-11-06] MEDS: METOPROLOL 50 MG TAB PO ×2 (08:33→20:07)
[2018-11-06] MEDS: LORAZEPAM 0.5 MG TAB PO ×2 (08:37→20:08)
[2018-11-06] MEDS: MULTIVITAMINS THERAPEUTIC TAB PO (09:00)
[2018-11-06] MEDS: BUDESONIDE (NEB) 0.5MG/2ML AMP HHN ×2 (11:07→19:33)
[2018-11-06] MEDS: ATORVASTATIN 40 MG TAB PO (20:07)
[2018-11-06] MEDS: HYDROCODONE/APAP (5/325) TAB PO (20:08)
[2018-11-06] MEDS: ZOLPIDEM 5 MG TAB PO (20:09)
[2018-11-07] MEDS: ZOLPIDEM 5 MG TAB PO ×2 (02:32→21:00)
[2018-11-07] MEDS: METOPROLOL 50 MG TAB PO ×2 (08:13→20:30)
[2018-11-07] MEDS: LEVETIRACETAM 750 MG TAB PO ×2 (08:19→20:29)
[2018-11-07] MEDS: MULTIVITAMINS THERAPEUTIC TAB PO (08:19)
[2018-11-07] MEDS: VENLAFAXINE 37.5 MG TAB PO (08:20)
[2018-11-07] MEDS: DOCUSATE SODIUM 100 MG CAP PO ×2 (08:20→20:29)
[2018-11-07] MEDS: NICOTINE (14 MG/24 HR) PATCH TRANSDERM (08:20)
[2018-11-07] MEDS: ALBUTEROL/IPRATROPIUM (NEB) 3 ML AMP HHN ×3 (08:42→21:51)
[2018-11-07] MEDS: BUDESONIDE (NEB) 0.5MG/2ML AMP HHN ×2 (08:42→21:52)
[2018-11-07] MEDS: LORAZEPAM 0.5 MG TAB PO ×2 (10:20→20:36)
[2018-11-07] MEDS: ATORVASTATIN 40 MG TAB PO (20:29)
[2018-11-08] MEDS: ZOLPIDEM 5 MG TAB PO (02:31)
[2018-11-08] MEDS: ALBUTEROL/IPRATROPIUM (NEB) 3 ML AMP HHN ×2 (08:45→13:55)
[2018-11-08] MEDS: VENLAFAXINE 37.5 MG TAB PO (08:50)
[2018-11-08] MEDS: MULTIVITAMINS THERAPEUTIC TAB PO (08:50)
[2018-11-08] MEDS: METOPROLOL 50 MG TAB PO (08:50)
[2018-11-08] MEDS: DOCUSATE SODIUM 100 MG CAP PO (08:50)
[2018-11-08] MEDS: LEVETIRACETAM 750 MG TAB PO (08:51)
[2018-11-08] MEDS: NICOTINE (14 MG/24 HR) PATCH TRANSDERM (08:51)
[2018-11-08] MEDS: LORAZEPAM 0.5 MG TAB PO (08:54)
[2018-11-08] MEDS: BUDESONIDE (NEB) 0.5MG/2ML AMP HHN (08:57)
== END 2018-11-08 15:35 | disposition home or self-care (01) | DRG 896 ==
LOC: 5EC 10-30 06:52 → E/R 08:19 → PP2 10-26 18:06 → TEL 13:22
DX: F10.239 Alcohol dependence with withdrawal, unspecified (principal); J96.21 Acute and chronic respiratory failure with hypoxia; J98.11 Atelectasis; D69.6 Thrombocytopenia, unspecified; D64.9 Anemia, unspecified; E78.5 Hyperlipidemia, unspecified; F41.9 Anxiety disorder, unspecified; F32.9 Major depressive disorder, single episode, unspecified; F17.200 Nicotine dependence, unspecified, uncomplicated; F10.288 Alcohol dependence with other alcohol-induced disorder; G40.901 Epilepsy, unspecified, not intractable, with status epilepticus; G93.89 Other specified disorders of brain; I10 Essential (primary) hypertension; J44.9 Chronic obstructive pulmonary disease, unspecified; R05 Cough; Y90.9 Presence of alcohol in blood, level not specified; Z99.81 Dependence on supplemental oxygen; Z91.81 History of falling
CPT/HCPCS: 36415; 36600; 70450; 71045; 80048; 80053; 80061; 80307; 81001; 82140; 82550; 82803; 83036; 83735; 84100; 84439; 84443; 84484; 85014; 85018; 85025; 85610; 85730; 93005; 93306; 94640; 94644; 94664; 96365; 96366; 96375; 97110; 97116; 97161; 97530; 99285-25; G0378